=== PATIENT | male | born 1965 | race Caucasian/White ===

== ENCOUNTER 2017-10-18 07:12 | Emergency (ER) | payer BC ==
[2017-10-18 07:22] VITALS: BP 127/74
--- NOTE | 2017-10-18 08:09 | Emergency Department Report ---
Eye Injury/Foreign Body - HPI Duration: 1 Day Eye Location: Left (eyelid) Severity: None (dull pain) Tetanus Status: Up to Date Eye Symptoms: Eye Pain: Yes (dull pain to left eyelid with redness and swelling) , Blurred Vision: No, Eye Redness: Yes (eyelid redness left upper), Grinding/ Hammering Metal: No, Used Eye Protection: No, Contact Lens Use: No, Recalls Injury: Yes, Photophobia: No Other History: Patient reports that he has redness and swelling to left upper eyelid without any injury. Denies any contacts or foreign body sensation in his eye. Denies any injury to his left eye. Denies any visual difficulties. Denies any fever or chills. Denies any drainage from eye. Tetanus vaccine is up-to-date. Pain is localized to his upper and lower eyelid at 2 out of 10. No medication taken for pain. Pain is worse with blinking. ED Review of Systems ROS: Stated complaint: LEFT EYE SWELLING Other details as noted in HPI Comment: All other systems reviewed and negative Constitutional: no symptoms reported Eyes: eye pain, other (eyelid redness and swelling) ENT: denies: ear pain, throat pain, hearing loss, epistaxis, congestion Respiratory: no symptoms reported Cardiovascular: denies: chest pain, palpitations, dyspnea on exertion, edema, syncope, paroxysmal nocturnal dyspnea Gastrointestinal: denies: abdominal pain, nausea, vomiting Musculoskeletal: denies: back pain, joint swelling, arthralgia, myalgia Skin: denies: rash Neurological: denies: headache, abnormal gait, vertigo ED Past Medical Hx - Past Medical History Previous Medical History?: Yes Hx Diabetes: Yes Hx Kidney Stones: Yes - Surgical History Past Surgical History?: Yes Hx Appendectomy: Yes - Family History Family history: diabetes, hypertension - Social History Smoking Status: Current Every Day Smoker Substance Use Type: None - Medications Home Medications: Home Medications Medication Instructions Recorded Confirmed Last Taken Type Gentamicin 0.3% Ophth Oint 1 applicatio OP Q8H 7 Days #1 tube 10/18/17 Unknown Rx Eye Injury Exam - Exam General: Vital signs noted. No distress. Alert and acting appropriately. This is a 52-year-old male well-nourished well-developed in no acute distress. - Visual Acuity Right Vision Acuity Degree: 20/30 Eye Exam: Both EOMI, Neither Abnormal Pupil, Neither Eye Foreign Body, Neither Lid Foreign Body, Neither Mucous Discharge, Neither Purulent Discharge, Neither Corneal Edema, Neither Photophobia Left Vision Acuity Degree: 20/25 Eye Exam: Both EOMI, Neither Injection, Neither Chemosis, Neither Abnormal Pupil , Neither Eye Foreign Body (left eyelid redness with swelling and period), Neither Lid Foreign Body (no induration), Neither Mucous Discharge, Neither Purulent Discharge, Neither Corneal Edema, Neither Photophobia Bilateral Eye Exam: Both Injection, Both EOMI, Neither Chemosis, Neither Abnormal Pupil, Neither Eye Foreign Body, Neither Lid Foreign Body, Neither Mucous Discharge, Neither Purulent Discharge, Neither Corneal Edema, Neither Photophobia Exam: Head: Normocephalic, atraumatic, no abrasion, no bruising and no contusion. Eyes: Biateral pupils equal and reactive to light, bilateral EOM intact.. Bilateral conjunctival and sclera without injection, normal accommodation. Left eyelid redness and swelling mild tenderness to palpate. Visual acuity is 20/30 right eye, 2024 left eye and 20/25 all around. Mouth: Moist, no pharyngeal exudate or erythema. No peritonsillar abscesses. Uvula is midline and oral airways patent. Ears: Bilateral TMs p[place]. Bilateral EAC without any redness swelling or drainage. No mastoid bone tenderness. Nose: Bilateral nasal mucosa normal without any drainag. Maxillary and frontal sinuses non-tender to palpate. Neck: Supple, No Cervical adenopathy, full range of motion and no C-spine tenderness. No swelling or tracheal deviation normal reflexes. Cardiovascular: S1, S2. Regular rate and rhythm. No murmur. Capillary refill is less then 3 seconds. Skin: Clean dry and intact, no rash no lesions. Lungs: Clear to auscultate bilaterally. No rhonchi, wheezes or rales. No. Psych: Normal mood and behavior ED Course Vital Signs 10/18/17 07:19 Temperature 97.8 F Pulse Rate 84 Respiratory 16 Rate Blood Pressure 127/74 O2 Sat by Pulse 100 Oximetry - Reevaluation(s) Reevaluation #1: 10/18/17 08:34 Patient had an uneventful stay ED Medical Decision Making - Medical Decision Making ED course: A stat with complaints of left eyelid swelling and found to have Hordeleum to left upper eyelid. I discussed diagnosis and treatment plan with patient. His visual acuity is stable. See notes for detail. Pain is localized to the left upper lid with no visual problems. I discussed treatment plan and follow-up the patient. He voiced understanding patient does have access to primary care and to sterilization tech so, I told him to follow-up in 2- 3 days. Condition discharged from ER in stable condition with prescription for gentamicin ophthalmic antibiotic ointment. Critical care attestation.: If time is entered above; I have spent that time in minutes in the direct care of this critically ill patient, excluding procedure time. ED Disposition Clinical Impression: Hordeolum externum left upper eyelid Disposition: DC- TO HOME OR SELFCARE Is pt being admited?: No Does the pt Need Aspirin: No Condition: Stable Instructions: Glenn (ED) Additional Instructions: Please apply warm compresses to the left upper eyelid followed by antibiotic ointment 4 times a day for 7 days Keep affected area clean and dry Follow-up with your primary care physician and sterilization tech as instructed Prescriptions: Gentamicin 0.3% Ophth Oint 1 applicatio OP Q8H 7 Days #1 tube Referrals: [facility] [Outside] - 2-3 Days REAGAN ELIZALDE MD [Staff Physician] - 2-3 Days Forms: Work/School Release Form(ED)
== END 2017-10-18 08:51 | disposition home or self-care (01) ==
LOC: ED 07:12
DX: H00.014 Hordeolum externum left upper eyelid (principal); E11.9 Type 2 diabetes mellitus without complications; F17.200 Nicotine dependence, unspecified, uncomplicated
CPT/HCPCS: 99282

== ENCOUNTER 2017-11-01 17:15 | Inpatient (IN) | payer BC ==
[2017-11-01 18:13] LABS: Basophils % (Auto) 0.2 % (0.0-1.8); Eosinophils # (Auto) 0.3 K/mm3 (0.0-0.4); Eosinophils % (Auto) 5.8 % (0.0-4.3); Hemoglobin 14.7 gm/dl (11.8-15.2); Lymphocytes # (Auto) 0.8 K/mm3 (1.2-5.4); Lymphocytes % (Auto) 14.6 % (13.4-35.0); Mean Corpuscular HGB Conc 34 % (32-34); Mean Corpuscular Hemoglobin 29 pg (28-32); Mean Corpuscular Volume 84 fl (84-94); Monocytes # (Auto) 0.7 K/mm3 (0.0-0.8); Monocytes % (Auto) 11.5 % (0.0-7.3); Platelet Count 232 K/mm3 (140-440); Red Blood Count 5.14 M/mm3 (3.65-5.03); Red Cell Distribution Width 13.3 % (13.2-15.2)
[2017-11-01 18:18] LABS: INR 0.87 (0.87-1.13)
[2017-11-01 18:19] LABS: Partial Thromboplastin Time 26.1 Sec. (24.2-36.6)
[2017-11-01] MEDS ORDERED: NACL 0.9% 1000 ML 1,000 ML IV ONE (18:19)
--- NOTE | 2017-11-01 18:20 | Emergency Department Report ---
ED Chest Pain HPI - General Chief Complaint: Chest Pain Stated Complaint: CHEST PAIN Source: patient Mode of arrival: Ambulatory Limitations: No Limitations - History of Present Illness Initial Comments: 52-year-old male with a history of obesity and hypothyroidism presents complaining of sternal chest pain that started at 4 PM today. Pain is described as 8/10 pressure that radiates to the left arm. Pain is intermittent but no aggravating or alleviating factors reported. Positive associated shortness of breath without nausea, vomiting, or diaphoresis. Intermittent palpitations were reported. Patient just returned from a plane flight from [place] on 10/15/2017. He complains of chronic intermittent bilateral lower extremity swelling which is no worse than baseline. PaThere is no unilateral calf pain reported. For the past 5 days patient has had a dry cough and a fever hi of 101 for the past 2 days. No fever today but cough persists. Patient did receive a flu shot. Last stress test was approximately one year ago performed by Dr. Saul that was "normal". Patient denies smoking cigarettes or any previous history of PE/DVT. Severity scale (0 -10): 3 - Related Data Previous Rx's Medication Instructions Recorded Last Taken Type Gentamicin 0.3% Ophth Oint 1 applicatio OP Q8H 7 Days #1 tube 10/18/17 Unknown Rx Allergies Allergy/AdvReac Type Severity Reaction Status Date / Time No Known Allergies Allergy Unverified 10/18/17 07:22 Heart Score - HEART Score History: Slightly suspicious EKG: Normal Age: 45-65 Risk factors: 1-2 risk factors Troponin: < normal limit HEART Score: 2 ED Review of Systems ROS: Stated complaint: CHEST PAIN Other details as noted in HPI Comment: All other systems reviewed and negative Other: Constitutional: No fevers chills Eyes: No eye pain visual changes ENT: No ear pain or throat pain Neck: Denies pain Respiratory: Denies cough wheezing Cardiovascular: as per hpi GI: Denies abdominal pain, nausea, vomiting, diarrhea : Denies dysuria Musculoskeletal: Denies back pain Skin: Denies rash, lesions, erythema Neurologic: Denies headache, numbness, weakness Psychiatric: Denies suicidal ideation, hallucinations ED Past Medical Hx - Past Medical History Hx Diabetes: Yes Hx Kidney Stones: Yes Additional medical history: hypothyroidism - Surgical History Hx Appendectomy: Yes Additional Surgical History: hernia repair x2 - Social History Smoking Status: Light Tobacco Smoker Substance Use Type: None - Medications Home Medications: Home Medications Medication Instructions Recorded Confirmed Last Taken Type Gentamicin 0.3% Ophth Oint 1 applicatio OP Q8H 7 Days #1 tube 10/18/17 Unknown Rx ED Physical Exam - General Limitations: No Limitations - Other Other exam information: General: No limitations, patient is alert in no acute distress Head exam: Atraumatic, normocephalic Eyes exam: Normal appearance ENT: Moist mucous membrane, normal oropharynx Neck exam: Normal inspection, full range of motion, no meningismus nontender Respiratory exam: Clear to auscultation bilateral, no wheezes, rales, crackles Cardiovascular: Mild tachycardia regular rhythm, normal heart sounds. Mild lower sternal chest wall tenderness Abdomen: Soft, nondistended, and nontender, with normal bowel sounds, no rebound, or guarding Extremity: Full range of motion normal inspection no deformity, no calf tenderness, no pitting edema, no leg asymmetry Back: Normal Inspection, full range of motion, no tenderness Neurologic: Alert, oriented x3, cranial nerves intact, no motor or sensory deficit Psychiatric: normal affect, normal mood Skin: Warm, dry, intact ED Course Vital Signs 11/01/17 11/01/17 17:23 18:15 Temperature 98.4 F Pulse Rate 106 H 97 H Respiratory 22 16 Rate Blood Pressure 127/76 122/81 O2 Sat by Pulse 96 92 Oximetry - Reevaluation(s) Reevaluation #1: 11/01/17 18:23 Patient declined offer for pain medication at this time MIKE score - Mike Score Age > 65: (0) No Aspirin use within the Past 7 Days: (0) No 3 or more CAD Risk Factors: (0) No 2 or more Angina events in past 24 hrs: (1) Yes Known CAD with more than 50% Stenosis: (0) No Elevated Cardiac Markers: (0) No ST Deviation Greater than 0.5mm: (0) No MIKE Score: 1 ED Medical Decision Making - Lab Data Result diagrams: 11/01/17 17:39 11/01/17 17:39 Lab Results 11/01/17 11/01/17 11/01/17 Range/Units 17:39 17:39 17:39 WBC 5.8 (4.5-11.0) K/mm3 RBC 5.14 H (3.65-5.03) M/mm3 Hgb 14.7 (11.8-15.2) gm/dl Hct 43.0 (35.5-45.6) % MCV 84 (84-94) fl MCH 29 (28-32) pg MCHC 34 (32-34) % RDW 13.3 (13.2-15.2) % Plt Count 232 (140-440) K/mm3 Lymph % (Auto) 14.6 (13.4-35.0) % [place] % (Auto) 11.5 H (0.0-7.3) % Eos % (Auto) 5.8 H (0.0-4.3) % Baso % (Auto) 0.2 (0.0-1.8) % Lymph # 0.8 L (1.2-5.4) K/mm3 [place] # 0.7 (0.0-0.8) K/mm3 Eos # 0.3 (0.0-0.4) K/mm3 Baso # 0.0 (0.0-0.1) K/mm3 Seg Neutrophils % 67.9 (40.0-70.0) % Seg Neutrophils # 3.9 (1.8-7.7) K/mm3 PT 12.2 (12.2-14.9) Sec. INR 0.87 (0.87-1.13) APTT 26.1 (24.2-36.6) Sec. D-Dimer 168.68 (0-234) ng/mlDDU Sodium 137 (137-145) mmol/L Potassium 4.0 (3.6-5.0) mmol/L Chloride 98.2 (98-107) mmol/L Carbon Dioxide 24 (22-30) mmol/L Anion Gap 19 mmol/L BUN 8 L (9-20) mg/dL Creatinine 0.6 L (0.8-1.5) mg/dL Estimated GFR > 60 ml/min BUN/Creatinine Ratio 13 % Glucose 155 H (75-100) mg/dL Calcium 8.5 (8.4-10.2) mg/dL Total Bilirubin 0.30 (0.1-1.2) mg/dL AST 20 (5-40) units/L ALT 22 (7-56) units/L Alkaline Phosphatase 84 (35-129) units/L Total Creatine Kinase 341 H (55-170) units/L CK-MB (CK-2) 1.5 (0.0-4.0) ng/mL CK-MB (CK-2) Rel Index 0.4 (0-4) Troponin T < 0.010 (0.00-0.029) ng/mL Total Protein 7.1 (6.3-8.2) g/dL Albumin 3.8 L (3.9-5) g/dL Albumin/Globulin Ratio 1.2 % TSH (0.270-4.200) mlU/mL Free T4 (0.76-1.46) ng/dL 11/01/17 Range/Units 17:44 WBC (4.5-11.0) K/mm3 RBC (3.65-5.03) M/mm3 Hgb (11.8-15.2) gm/dl Hct (35.5-45.6) % MCV (84-94) fl MCH (28-32) pg MCHC (32-34) % RDW (13.2-15.2) % Plt Count (140-440) K/mm3 Lymph % (Auto) (13.4-35.0) % [place] % (Auto) (0.0-7.3) % Eos % (Auto) (0.0-4.3) % Baso % (Auto) (0.0-1.8) % Lymph # (1.2-5.4) K/mm3 [place] # (0.0-0.8) K/mm3 Eos # (0.0-0.4) K/mm3 Baso # (0.0-0.1) K/mm3 Seg Neutrophils % (40.0-70.0) % Seg Neutrophils # (1.8-7.7) K/mm3 PT (12.2-14.9) Sec. INR (0.87-1.13) APTT (24.2-36.6) Sec. D-Dimer (0-234) ng/mlDDU Sodium (137-145) mmol/L Potassium (3.6-5.0) mmol/L Chloride (98-107) mmol/L Carbon Dioxide (22-30) mmol/L Anion Gap mmol/L BUN (9-20) mg/dL Creatinine (0.8-1.5) mg/dL Estimated GFR ml/min BUN/Creatinine Ratio % Glucose (75-100) mg/dL Calcium (8.4-10.2) mg/dL Total Bilirubin (0.1-1.2) mg/dL AST (5-40) units/L ALT (7-56) units/L Alkaline Phosphatase (35-129) units/L Total Creatine Kinase (55-170) units/L CK-MB (CK-2) (0.0-4.0) ng/mL CK-MB (CK-2) Rel Index (0-4) Troponin T (0.00-0.029) ng/mL Total Protein (6.3-8.2) g/dL Albumin (3.9-5) g/dL Albumin/Globulin Ratio % TSH 0.594 (0.270-4.200) mlU/mL Free T4 1.11 (0.76-1.46) ng/dL - EKG Data -: EKG Interpreted by Mo EKG shows normal: sinus rhythm, axis (20), QRS complexes (86), ST-T waves (mo semi) Rate: tachycardia (110) - EKG Data When compared to previous EKG there are: previous EKG unavailable - Radiology Data Radiology results: report reviewed Read by radiologist Chest x-ray: Linear atelectasis or scarring in the lingula. No other acute process - Medical Decision Making Chest pain Mild sternal tenderness but patient states that the pain he is experiencing is a pressure different from the reproducible chest wall pain. EKG and labs unremarkable. D-dimer negative. Repeat cardiac enzymes pending Patient has several cardiac risk factors but reports a negative stress tests within the past year done at another facility URI Complains of a cough and cold symptoms with fever Fever improved today No significant leukocytosis or infiltrate identified Patient receive a flu shot Plan admit to the hospital due to shortness of breath and chest pain complaints for further workup and evaluation. - Differential Diagnosis PE, ME, unstable anginia,costochondritis, pneumonia, atypical chest, viral Critical Care Time: No Critical care attestation.: If time is entered above; I have spent that time in minutes in the direct care of this critically ill patient, excluding procedure time. ED Disposition Clinical Impression: Chest pain, Obesity, Viral syndrome Disposition: OP ADMIT IP TO THIS HOSP Is pt being admited?: Yes Condition: Stable Time of Disposition: 19:18 (Dr Moseley/hosp)
[2017-11-01 18:39] LABS: Alanine Aminotransferase 22 units/L (7-56); Albumin 3.8 g/dL (3.9-5); BUN/Creatinine Ratio 13; Blood Urea Nitrogen 8 mg/dL (9-20); Calcium 8.5 mg/dL (8.4-10.2); Creatine Kinase MB 1.5 ng/mL (0.0-4.0); Hemolysis Index 10
[2017-11-01 18:45] LABS: Free T4 (Free Thyroxine) 1.11 ng/dL (0.76-1.46)
--- NOTE | 2017-11-01 18:49 | XRay Report ---
FINAL REPORT EXAM: XR CHEST ROUTINE 2V HISTORY: Chest Pain TECHNIQUE: PA and lateral views of the chest PRIORS: None. FINDINGS: Lines, tubes, and devices: N/A Lungs and pleura: Trachea is normal in position. Linear atelectasis or scarring in the lingula is seen. Lungs are clear of infiltrate, pleural effusion, vascular congestion, or pneumothorax. Cardiomediastinal silhouette: Cardiac and mediastinal silhouettes are unremarkable. Other: Bony structures are intact. IMPRESSION: Linear atelectasis or scarring in the lingula is seen. No other acute cardiopulmonary process seen.
[2017-11-01] MEDS ORDERED: MOTRIN PO ONE (22:29)
--- NOTE | 2017-11-01 23:38 | History and Physical Report ---
History of Present Illness Date of examination: 11/01/17 Date of admission: 11/01/17 19:31 Chief complaint: CC CHest pain since 4pm -intermittent in nature History of present illness: History of Present Illness 52-year-old male with a history of obesity and hypothyroidism presents complaining of Retro sternal chest pain that started at 4 PM today. Pain is described as 8/10 pressure that radiates to the left arm. Pain is intermittent but no aggravating or alleviating factors reported. Positive associated shortness of breath without nausea, vomiting, or diaphoresis. Intermittent palpitations were reported. Patient just returned from a plane flight from [place] on 10/15/2017. He complains of chronic intermittent bilateral lower extremity swelling which is no worse than baseline. There is no unilateral calf pain reported. For the past 5 days patient has had a dry cough and a fever high temp of 101 for the past 2 days. No fever today but cough persists. Patient did receive a flu shot. Last stress test was approximately one year ago performed by Dr. Saul that was "normal". Patient denies smoking cigarettes or any previous history of PE/DVT.Patient apparently lost 500 lbs from 360lbsto 310lbs over last one year. Past Medical History Hx Diabetes: Yes Hx Kidney Stones: Yes Additional medical history: hypothyroidism - Surgical History Hx Appendectomy: Yes Additional Surgical History: hernia repair x2 - Social History Smoking Status: Light Tobacco Smoker Substance Use Type: None Fam Hx Htn - Medications Home Medications: Home Medications Medication Instructions Recorded Confirmed Last Taken Type Gentamicin 0.3% Ophth Oint 1 applicatio OP Q8H 7 Days #1 tube 10/18/17 Unknown Rx Medications and Allergies Allergies Allergy/AdvReac Type Severity Reaction Status Date / Time No Known Allergies Allergy Verified 11/02/17 00:24 Home Medications Medication Instructions Recorded Confirmed Last Taken Type Gentamicin 0.3% Ophth Oint 1 applicatio OP Q8H 7 Days #1 tube 10/18/17 Unknown Rx Review of Systems All systems: negative Constitutional: weight loss (Lost 50 lbs over last one year), fever, no weight gain, no chills, no sweats, no night sweats Ears, nose, mouth and throat: no sore throat, no swelling in mouth, no swelling in throat, no odynophagia Cardiovascular: dyspnea on exertion, no chest pain, no orthopnea, no palpitations, no rapid/irregular heart beat, no edema, no syncope Respiratory: cough, congestion Gastrointestinal: no abdominal pain, no nausea, no vomiting, no diarrhea, no constipation, no change in bowel habits, no hematemesis, no coffee ground emesis Genitourinary Male: no dysuria, no hematuria, no flank pain, no discharge, no urinary frequency Rectal: no pain Musculoskeletal: no neck stiffness, no neck pain, no shooting arm pain, no arm numbness/tingling Integumentary: no rash, no pruritis, no redness, no sores Neurological: no head injury, no seizures, no syncope Psychiatric: no anxiety, no memory loss, no sleep disturbances, no insomnia Endocrine: no cold intolerance, no heat intolerance, no polyphagia, no excessive thirst, no polydipsia Hematologic/Lymphatic: no easy bruising, no easy bleeding Allergic/Immunologic: no urticaria, no allergic rhinitis, no wheezing Exam - Constitutional Vitals: Temp Pulse Resp BP Pulse Ox 98.5 F 94 H 31 H 132/75 94 11/01/17 19:29 11/01/17 23:27 11/01/17 21:00 11/01/17 22:31 11/01/17 22:31 General appearance: Present: no acute distress, well-nourished - EENT Eyes: Present: PERRL ENT: hearing intact, clear oral mucosa - Neck Neck: Present: supple, normal ROM - Respiratory Respiratory effort: normal Respiratory: bilateral: CTA - Cardiovascular Heart rate: 80 Rhythm: regular Heart Sounds: Present: S1 & S2. Absent: rub, click - Extremities Extremities: no ischemia, pulses intact, pulses symmetrical, No edema Peripheral Pulses: within normal limits - Abdominal General gastrointestinal: Present: soft, non-tender, non-distended, normal bowel sounds Male genitourinary: Present: normal - Rectal Rectal Exam: deferred - Integumentary Integumentary: Present: clear, warm, dry - Musculoskeletal Musculoskeletal: gait normal, strength equal bilaterally - Psychiatric Psychiatric: appropriate mood/affect, intact judgment & insight - Neurologic Neurologic: CNII-XII intact, moves all extremities - Allied Health Allied health notes reviewed: nursing, case management Results - Labs CBC & Chem 7: 11/01/17 17:39 11/01/17 17:39 Labs: Laboratory Last Values WBC 5.8 K/mm3 (4.5-11.0) 11/01/17 17:39 RBC 5.14 M/mm3 (3.65-5.03) H 11/01/17 17:39 Hgb 14.7 gm/dl (11.8-15.2) 11/01/17 17:39 Hct 43.0 % (35.5-45.6) 11/01/17 17:39 MCV 84 fl (84-94) 11/01/17 17:39 MCH 29 pg (28-32) 11/01/17 17:39 MCHC 34 % (32-34) 11/01/17 17:39 RDW 13.3 % (13.2-15.2) 11/01/17 17:39 Plt Count 232 K/mm3 (140-440) 11/01/17 17:39 Lymph % (Auto) 14.6 % (13.4-35.0) 11/01/17 17:39 [place] % (Auto) 11.5 % (0.0-7.3) H 11/01/17 17:39 Eos % (Auto) 5.8 % (0.0-4.3) H 11/01/17 17:39 Baso % (Auto) 0.2 % (0.0-1.8) 11/01/17 17:39 Lymph # 0.8 K/mm3 (1.2-5.4) L 11/01/17 17:39 [place] # 0.7 K/mm3 (0.0-0.8) 11/01/17 17:39 Eos # 0.3 K/mm3 (0.0-0.4) 11/01/17 17:39 Baso # 0.0 K/mm3 (0.0-0.1) 11/01/17 17:39 Seg Neutrophils % 67.9 % (40.0-70.0) 11/01/17 17:39 Seg Neutrophils # 3.9 K/mm3 (1.8-7.7) 11/01/17 17:39 PT 12.2 Sec. (12.2-14.9) 11/01/17 17:39 INR 0.87 (0.87-1.13) 11/01/17 17:39 APTT 26.1 Sec. (24.2-36.6) 11/01/17 17:39 D-Dimer 168.68 ng/mlDDU (0-234) 11/01/17 17:39 Sodium 137 mmol/L (137-145) 11/01/17 17:39 Potassium 4.0 mmol/L (3.6-5.0) 11/01/17 17:39 Chloride 98.2 mmol/L (98-107) 11/01/17 17:39 Carbon Dioxide 24 mmol/L (22-30) 11/01/17 17:39 Anion Gap 19 mmol/L 11/01/17 17:39 BUN 8 mg/dL (9-20) L 11/01/17 17:39 Creatinine 0.6 mg/dL (0.8-1.5) L 11/01/17 17:39 Estimated GFR > 60 ml/min 11/01/17 17:39 BUN/Creatinine Ratio 13 % 11/01/17 17:39 Glucose 155 mg/dL (75-100) H 11/01/17 17:39 Calcium 8.5 mg/dL (8.4-10.2) 11/01/17 17:39 Total Bilirubin 0.30 mg/dL (0.1-1.2) 11/01/17 17:39 AST 20 units/L (5-40) 11/01/17 17:39 ALT 22 units/L (7-56) 11/01/17 17:39 Alkaline Phosphatase 84 units/L (35-129) 11/01/17 17:39 Total Creatine Kinase 341 units/L (55-170) H 11/01/17 17:39 CK-MB (CK-2) 1.5 ng/mL (0.0-4.0) 11/01/17 17:39 CK-MB (CK-2) Rel Index 0.4 (0-4) 11/01/17 17:39 Troponin T < 0.010 ng/mL (0.00-0.029) 11/01/17 20:23 Total Protein 7.1 g/dL (6.3-8.2) 11/01/17 17:39 Albumin 3.8 g/dL (3.9-5) L 11/01/17 17:39 Albumin/Globulin Ratio 1.2 % 11/01/17 17:39 TSH 0.594 mlU/mL (0.270-4.200) 11/01/17 17:44 Free T4 1.11 ng/dL (0.76-1.46) 11/01/17 17:44 Short CBC 11/01/17 Range/Units 17:39 WBC 5.8 (4.5-11.0) K/mm3 Hgb 14.7 (11.8-15.2) gm/dl Hct 43.0 (35.5-45.6) % Plt Count 232 (140-440) K/mm3 BMP 11/01/17 17:39 Sodium 137 Potassium 4.0 Chloride 98.2 Carbon Dioxide 24 BUN 8 L Creatinine 0.6 L Glucose 155 H Calcium 8.5 Cardiac Enzymes 11/01/17 11/01/17 11/01/17 Range/Units 17:39 20:23 23:01 Total Creatine Kinase 341 H (55-170) units/L CK-MB (CK-2) 1.5 (0.0-4.0) ng/mL Troponin T < 0.010 < 0.010 < 0.010 (0.00-0.029) ng/mL 11/02/17 Range/Units 00:29 Total Creatine Kinase (55-170) units/L CK-MB (CK-2) (0.0-4.0) ng/mL Troponin T < 0.010 (0.00-0.029) ng/mL Liver Function 11/01/17 Range/Units 17:39 Total Bilirubin 0.30 (0.1-1.2) mg/dL AST 20 (5-40) units/L ALT 22 (7-56) units/L Alkaline Phosphatase 84 (35-129) units/L Albumin 3.8 L (3.9-5) g/dL - Imaging and Cardiology EKG: report reviewed ( sinus rhythm, axis (20), QRS complexes (86), ST-T waves ( mo semi)Sinus tach 110/min) Chest x-ray: report reviewed (NAF) CT Scan - head: pending Assessment and Plan Advance Directives: Yes (Full code) VTE prophylaxis?: Chemical Plan of care discussed with patient/family: Yes - Patient Problems (1) Chest pain Current Visit: Yes Status: Acute Qualifiers: Chest pain type: unspecified Qualified Code(s): R07.9 - Chest pain, unspecified Plan to address problem: Chest pain w/u Serial CE's and Lexiscan in AM Costochondritis unlikely.No reproducible chest pain. Gerd a poosibility (2) Obesity Current Visit: Yes Status: Acute Qualifiers: Obesity classification: adult class 3 (BMI >= 40) Body mass index: BMI 50.0 -59.9 Plan to address problem: Patient counselled.Has lost 50 lbs over last 1 year.Made a life style change (3) Viral syndrome Current Visit: Yes Status: Acute Plan to address problem: Symptomatic treatment PO Zithromax for 3 days (4) T2DM (type 2 diabetes mellitus) Current Visit: Yes Status: Chronic Qualifiers: Diabetes mellitus complication status: without complication Plan to address problem: A1c =7.0 Not on any medicine for T2dm Initiatd on Metformin xr 1000 po qd.F/u with pcp regarding control of Diabetes Diabetes education (5) Hypothyroidism (acquired) Current Visit: Yes Status: Chronic Plan to address problem: Patient 's TSH is normal.F/u with pcp.Not on synthyroid. (6) GERD (gastroesophageal reflux disease) Current Visit: Yes Status: Chronic Qualifiers: Esophagitis presence: without esophagitis Qualified Code(s): K21.9 - Gastro -esophageal reflux disease without esophagitis Plan to address problem: Initiated on PO Protonix.To d/c on Protonix (7) DVT prophylaxis Current Visit: Yes Status: Acute Plan to address problem: On Lovenox
[2017-11-02] MEDS ORDERED: MORPHINE IV PRN (00:13)
[2017-11-02] MEDS ORDERED: TYLENOL PO PRN (00:13)
[2017-11-02] MEDS ORDERED: PERCOCET 5/325 PO PRN (00:13)
[2017-11-02] MEDS ORDERED: ZOFRAN IV PRN (00:13)
[2017-11-02] MEDS ORDERED: DULCOLAX PR PRN (00:13)
[2017-11-02] MEDS ORDERED: MILK OF MAGNESIA PO PRN (00:13)
[2017-11-02] MEDS: NOVOLOG SUB-Q SCH ×4 (07:30→22:04)
[2017-11-02] MEDS ORDERED: LEXISCAN IV ONE ×2 (08:11→08:23)
[2017-11-02] MEDS: GLUCOPHAGE XR PO SCH (09:00)
[2017-11-02] MEDS ORDERED: PEPCID PO SCH (10:00)
[2017-11-02] MEDS ORDERED: ATIVAN IV NR (11:30)
--- NOTE | 2017-11-02 12:20 | Progress Note ---
Assessment and Plan - Patient Problems (1) Chest pain Current Visit: Yes Status: Acute Qualifiers: Chest pain type: unspecified Qualified Code(s): R07.9 - Chest pain, unspecified Plan to address problem: Patient with atypical chest pain currently chest pain-free at this particular time. Patient to have stress test today we'll follow results. At the top my differential is Cruz syndrome at this particular time. Troponin negative chest x -ray negative EKG unremarkable. Stress test unremarkable plan discharge. (2) Hypothyroidism (acquired) Current Visit: Yes Status: Acute Plan to address problem: Suboptimal resume Synthroid. (3) Obesity Current Visit: Yes Status: Acute Qualifiers: Obesity classification: adult class 3 (BMI >= 40) Body mass index: BMI 50.0 -59.9 Plan to address problem: Can also diet education also discussed with options at mealtime. (4) Viral syndrome Current Visit: Yes Status: Acute (5) T2DM (type 2 diabetes mellitus) Current Visit: Yes Status: Chronic Qualifiers: Diabetes mellitus complication status: without complication Plan to address problem: Patient started on metformin just today. I'll observe effectiveness. A1c was 7.0 History Interval history: Patient down for stress test this afternoon. at bedside. No new concerns. Hospital course complicated this afternoon by anxiety at procedure. We'll give Ativan to help calm patient down prior to procedure. We didn't perform stress test. Hospitalist Physical - Constitutional Vitals: Temp Pulse Resp BP Pulse Ox 97.5 F L 102 H 19 112/69 98 11/02/17 08:04 11/02/17 10:42 11/02/17 09:00 11/02/17 10:42 11/02/17 09:00 General appearance: Present: no acute distress, well-nourished - EENT Eyes: Present: PERRL, EOM intact ENT: hearing intact, clear oral mucosa, dentition normal - Neck Neck: Present: supple, normal ROM - Respiratory Respiratory: bilateral: CTA - Extremities Extremities: no ischemia, pulses intact, pulses symmetrical, No edema, normal temperature Peripheral Pulses: within normal limits - Abdominal General gastrointestinal: soft, non-tender, non-distended - Integumentary Integumentary: Present: clear, warm, dry - Psychiatric Psychiatric: appropriate mood/affect - Neurologic Neurologic: CNII-XII intact Results - Labs CBC & Chem 7: 11/01/17 17:39 02 17:39 Labs: Laboratory Last Values WBC 5.8 K/mm3 (4.5-11.0) 11/01/17 17:39 RBC 5.14 M/mm3 (3.65-5.03) H 11/01/17 17:39 Hgb 14.7 gm/dl (11.8-15.2) 11/01/17 17:39 Hct 43.0 % (35.5-45.6) 11/01/17 17:39 MCV 84 fl (84-94) 11/01/17 17:39 MCH 29 pg (28-32) 11/01/17 17:39 MCHC 34 % (32-34) 11/01/17 17:39 RDW 13.3 % (13.2-15.2) 11/01/17 17:39 Plt Count 232 K/mm3 (140-440) 11/01/17 17:39 Lymph % (Auto) 14.6 % (13.4-35.0) 11/01/17 17:39 [place] % (Auto) 11.5 % (0.0-7.3) H 11/01/17 17:39 Eos % (Auto) 5.8 % (0.0-4.3) H 11/01/17 17:39 Baso % (Auto) 0.2 % (0.0-1.8) 11/01/17 17:39 Lymph # 0.8 K/mm3 (1.2-5.4) L 11/01/17 17:39 [place] # 0.7 K/mm3 (0.0-0.8) 11/01/17 17:39 Eos # 0.3 K/mm3 (0.0-0.4) 11/01/17 17:39 Baso # 0.0 K/mm3 (0.0-0.1) 11/01/17 17:39 Seg Neutrophils % 67.9 % (40.0-70.0) 11/01/17 17:39 Seg Neutrophils # 3.9 K/mm3 (1.8-7.7) 11/01/17 17:39 PT 12.2 Sec. (12.2-14.9) 11/01/17 17:39 INR 0.87 (0.87-1.13) 11/01/17 17:39 APTT 26.1 Sec. (24.2-36.6) 11/01/17 17:39 D-Dimer 168.68 ng/mlDDU (0-234) 11/01/17 17:39 Sodium 137 mmol/L (137-145) 11/01/17 17:39 Potassium 4.0 mmol/L (3.6-5.0) 11/01/17 17:39 Chloride 98.2 mmol/L (98-107) 11/01/17 17:39 Carbon Dioxide 24 mmol/L (22-30) 11/01/17 17:39 Anion Gap 19 mmol/L 11/01/17 17:39 BUN 8 mg/dL (9-20) L 11/01/17 17:39 Creatinine 0.6 mg/dL (0.8-1.5) L 11/01/17 17:39 Estimated GFR > 60 ml/min 11/01/17 17:39 BUN/Creatinine Ratio 13 % 11/01/17 17:39 Glucose 155 mg/dL (75-100) H 11/01/17 17:39 POC Glucose 134 (70-105) H 11/02/17 08:11 Hemoglobin A1c 7.0 % (4-6) H 11/02/17 00:29 Calcium 8.5 mg/dL (8.4-10.2) 11/01/17 17:39 Total Bilirubin 0.30 mg/dL (0.1-1.2) 11/01/17 17:39 AST 20 units/L (5-40) 11/01/17 17:39 ALT 22 units/L (7-56) 11/01/17 17:39 Alkaline Phosphatase 84 units/L (35-129) 11/01/17 17:39 Total Creatine Kinase 341 units/L (55-170) H 11/01/17 17:39 CK-MB (CK-2) 1.5 ng/mL (0.0-4.0) 11/01/17 17:39 CK-MB (CK-2) Rel Index 0.4 (0-4) 11/01/17 17:39 Troponin T < 0.010 ng/mL (0.00-0.029) 11/02/17 07:46 Total Protein 7.1 g/dL (6.3-8.2) 11/01/17 17:39 Albumin 3.8 g/dL (3.9-5) L 11/01/17 17:39 Albumin/Globulin Ratio 1.2 % 11/01/17 17:39 TSH 0.980 mlU/mL (0.270-4.200) 11/02/17 07:46 Free T4 1.11 ng/dL (0.76-1.46) 11/01/17 17:44
[2017-11-02] MEDS: PROTONIX PO SCH (13:18)
[2017-11-02] MEDS: ZITHROMAX PO SCH (13:18)
--- NOTE | 2017-11-02 13:27 | Consultation ---
History of Present Illness Consult date: 11/02/17 Consult reason: chest pain History of present illness: 52-year-old man with a history of morbid obesity, who presents to the hospital with chest pain. He describes nonexertional chest pain which was associated with upper respiratory tract symptoms and a persistent fever at home over the past several days. There is no history of coronary artery disease. A dobutamine echocardiogram stress test about a year ago was negative. On this presentation, ECG was sinus rhythm with no ischemic changes. Cardiac enzymes were unremarkable. He underwent a Persantine thallium stress test ordered by the medical service. The thallium stress test shows a small fixed basal inferior defect of mild to moderate intensity, consistent with diaphragmatic attenuation artifact. No significant reversible ischemia is demonstrated on this study. Past History Past Medical History: other (obesity) Medications and Allergies Allergies Allergy/AdvReac Type Severity Reaction Status Date / Time No Known Allergies Allergy Verified 11/02/17 00:24 Home Medications Medication Instructions Recorded Confirmed Last Taken Type Gentamicin 0.3% Ophth Oint 1 applicatio OP Q8H 7 Days #1 tube 10/18/17 Unknown Rx Active Meds: Active Medications Acetaminophen (Tylenol) 650 mg PO Q4H PRN PRN Reason: Pain MILD(1-3)/Fever >100.5/MOORE Azithromycin (Zithromax) 500 mg PO QDAY [facility] Last Admin: 11/02/17 13:18 Dose: 500 mg Bisacodyl (Dulcolax) 10 mg DC QDAY PRN PRN Reason: Constipation unrelieved by MOM Insulin Aspart (Novolog) 0 units SUB-Q ACHS [facility] PRN Reason: Protocol Last Admin: 11/02/17 13:15 Dose: Not Given Magnesium Hydroxide (Milk Of Magnesia) 30 ml PO Q4H PRN PRN Reason: Constipation Metformin HCl (Glucophage Xr) 1,000 mg PO QDDIAB [facility] Last Admin: 11/02/17 09:00 Dose: Not Given Morphine Sulfate (Morphine) 4 mg IV Q4H PRN PRN Reason: Pain , Severe (7-10) Ondansetron HCl (Zofran) 4 mg IV Q8H PRN PRN Reason: N/V unrelieved by Reglan Oxycodone/Acetaminophen (Percocet 5/325) 1 tab PO Q6H PRN PRN Reason: Pain, Moderate (4-6) Pantoprazole Sodium (Protonix) 40 mg PO QDAY [facility] Last Admin: 11/02/17 13:18 Dose: 40 mg Review of Systems Constitutional: fever Cardiovascular: chest pain Respiratory: cough Physical Examination Vital Signs Temp Pulse Resp BP Pulse Ox 98.4 F 106 H 22 127/76 96 11/01/17 17:23 11/01/17 17:23 11/01/17 17:23 11/01/17 17:23 11/01/17 17:23 General appearance: no acute distress HEENT: Positive: PERRL Neck: Positive: neck supple Cardiac: Positive: Reg Rate and Rhythm Lungs: Positive: Decreased Breath Sounds Neuro: Positive: Grossly Intact Abdomen: Positive: Soft Male genitourinary: Positive: deferred Skin: Positive: Clear Extremities: Absent: edema Results 11/01/17 17:39 11/01/17 17:39 Cardiac Enzymes 11/01/17 Range/Units 17:39 AST 20 (5-40) units/L CK-MB (CK-2) 1.5 (0.0-4.0) ng/mL Coagulation 11/01/17 Range/Units 17:39 PT 12.2 (12.2-14.9) Sec. INR 0.87 (0.87-1.13) APTT 26.1 (24.2-36.6) Sec. CBC 11/01/17 Range/Units 17:39 WBC 5.8 (4.5-11.0) K/mm3 RBC 5.14 H (3.65-5.03) M/mm3 Hgb 14.7 (11.8-15.2) gm/dl Hct 43.0 (35.5-45.6) % Plt Count 232 (140-440) K/mm3 Lymph # 0.8 L (1.2-5.4) K/mm3 [place] # 0.7 (0.0-0.8) K/mm3 Eos # 0.3 (0.0-0.4) K/mm3 Baso # 0.0 (0.0-0.1) K/mm3 Comprehensive Metabolic Panel 11/01/17 Range/Units 17:39 Sodium 137 (137-145) mmol/L Potassium 4.0 (3.6-5.0) mmol/L Chloride 98.2 (98-107) mmol/L Carbon Dioxide 24 (22-30) mmol/L BUN 8 L (9-20) mg/dL Creatinine 0.6 L (0.8-1.5) mg/dL Glucose 155 H (75-100) mg/dL Calcium 8.5 (8.4-10.2) mg/dL AST 20 (5-40) units/L ALT 22 (7-56) units/L Alkaline Phosphatase 84 (35-129) units/L Total Protein 7.1 (6.3-8.2) g/dL Albumin 3.8 L (3.9-5) g/dL EKG interpretations - Telemetry EKG Rhythm: Sinus Rhythm Assessment and Plan Patient's chest pain is atypical, was associated with upper respiratory tract infection and fever at home. ECGs and cardiac enzymes are negative, and Persantin thallium stress test is negative. No further cardiac workup is indicated at the current time, recommend that patient follows up with me in the office in 3-5 days. Thank you for the consultation.
--- NOTE | 2017-11-02 23:39 | Treadmill Report ---
Thallium Stress Test Left ventricular chamber size is within normal spread. Perfusion study demonstrates a small fixed basal inferior defect, with minimal to no significant reversibility in the resting study. Gated analysis demonstrates normal left ventricular systolic function, ejection fraction 64%. CONCLUSION: Small fixed basal inferior defect, likely represents diaphragmatic attenuation artifact. Cannot exclude a small prior basal inferior infarct. Clinical correlation is recommended. JOB# [id number] CA/NTS
[2017-11-03] MEDS: PROTONIX PO SCH (09:23)
[2017-11-03] MEDS: ZITHROMAX PO SCH (09:23)
[2017-11-03] MEDS: NOVOLOG SUB-Q SCH ×2 (09:23→13:07)
[2017-11-03] MEDS: GLUCOPHAGE XR PO SCH (09:23)
--- NOTE | 2017-11-03 12:36 | Progress Note ---
Assessment and Plan Upper respiratory infection Atypical chest pain negative this admission No further cardiac workup is indicated. Stable, cardiac youssef, for discharge home. Subjective Date of service: 11/03/17 Interval history: Patient denies chest pain. Still with coughs and congestion. Objective Vital Signs Temp Pulse Pulse Resp BP Pulse Ox 11/03/17 09:46 97.3 F L 76 20 119/80 98 11/03/17 08:37 91 H 19 11/03/17 05:06 98.2 F 71 18 123/78 97 11/03/17 00:49 97.8 F 67 20 133/86 95 11/02/17 20:27 97.8 F 86 18 116/73 95 11/02/17 19:35 86 11/02/17 18:42 17 11/02/17 15:00 76 11/02/17 12:40 97.9 F 90 19 115/81 96 - Physical Examination General: No Apparent Distress HEENT: Positive: PERRL Neck: Positive: neck supple Cardiac: Positive: Reg Rate and Rhythm Lungs: Positive: Decreased Breath Sounds Neuro: Positive: Grossly Intact Abdomen: Positive: Soft Skin: Positive: Clear Extremities: Absent: edema - Imaging and Cardiology EKG: report reviewed ( sinus rhythm, axis (20), QRS complexes (86), ST-T waves ( mo semi)Sinus tach 110/min)
[2017-11-03 13:14] VITALS: BP 133/66
--- NOTE | 2017-11-03 13:26 | Discharge Summary ---
Providers - Providers Date of Admission: 11/01/17 19:31 Date of discharge: 11/03/17 Attending physician: BK JAMES 11/02/17 06:02 Consult to Physician [CONS] Routine Consulting Provider: BEAR LOBO Reason For Exam: Chest pain Notified:: yes Primary care physician: [facility] Hospitalization Condition: Good Pertinent studies: Persantine thallium only small anterior fixed defect. Unremarkable. No reversible. Hospital course: Patient presented originally with cough shortness of breath. Patient has risk factors for hypertension diabetes and morbid obesity. Patient brought in for shortness of breath and atypical chest pain. Cough. Was found to have negative Persantine thallium negative cardiac isoenzymes and no EKG changes. Patient therefore. Theoretically ruled out for cardiac event. Seems mostly secondary to costochondritis from coughing. Patient be treated empirically again antibiotics for bronchitis. Disposition: DC- TO HOME OR SELFCARE - Discharge Diagnoses (1) Chest pain Status: Ruled-out Qualifiers: Chest pain type: unspecified Qualified Code(s): R07.9 - Chest pain, unspecified (2) Hypothyroidism (acquired) Status: Chronic (3) Obesity Status: Chronic Qualifiers: Obesity classification: adult class 3 (BMI >= 40) Body mass index: BMI 50.0 -59.9 Comment: Diet O smoking while patient has bronchitis. (4) Viral syndrome Status: Acute (5) T2DM (type 2 diabetes mellitus) Status: Chronic Qualifiers: Diabetes mellitus complication status: without complication Comment: Fair control of blood sugars will resume metformin. Core Measure Documentation - Palliative Care Palliative Care/ Comfort Measures: Not Applicable - Core Measures Any of the following diagnoses?: none Exam - Constitutional Vitals: Temp Pulse Resp BP Pulse Ox 97.6 F 75 20 133/66 93 11/03/17 13:13 11/03/17 13:13 11/03/17 13:13 11/03/17 13:13 11/03/17 13:13 General appearance: Present: no acute distress, well-nourished - EENT Eyes: Present: PERRL ENT: hearing intact, clear oral mucosa - Neck Neck: Present: supple, normal ROM - Respiratory Respiratory effort: normal Respiratory: bilateral: CTA - Cardiovascular Heart Sounds: Present: S1 & S2. Absent: rub, click - Extremities Extremities: pulses symmetrical, No edema Peripheral Pulses: within normal limits - Abdominal General gastrointestinal: Present: soft, non-tender, non-distended, normal bowel sounds Male genitourinary: Present: normal - Integumentary Integumentary: Present: clear, warm, dry - Musculoskeletal Musculoskeletal: gait normal, strength equal bilaterally - Psychiatric Psychiatric: appropriate mood/affect, intact judgment & insight - Neurologic Neurologic: CNII-XII intact, moves all extremities Plan Activity: avoid flexion Weight Bearing Status: Full Weight Bearing Diet: diabetic Follow up with: VANESSA THOMAS MD [Staff Physician] - 7 Days PRIMARY CARE, [Primary Care Provider] - 7 Days Prescriptions: Azithromycin [Zithromax TAB] 500 mg PO QDAY #7 tablet metFORMIN XR [Glucophage XR] 1,000 mg PO QDDIAB #60 tablet
== END 2017-11-03 14:31 | disposition home or self-care (01) | DRG 206 ==
LOC: ED 17:15 → 4A 19:31
PROVIDERS: ADMIT Internal Medicine; ATTEND Internal Medicine
DX: M94.0 Chondrocostal junction syndrome [Tietze] (principal); Z68.42 Body mass index [BMI] 45.0-49.9, adult; B34.9 Viral infection, unspecified; E03.9 Hypothyroidism, unspecified; E11.9 Type 2 diabetes mellitus without complications; E66.01 Morbid (severe) obesity due to excess calories; J06.9 Acute upper respiratory infection, unspecified; K21.9 Gastro-esophageal reflux disease without esophagitis; Z71.3 Dietary counseling and surveillance
CPT/HCPCS: 36415; 71046; 78452; 80053; 82550; 82553; 82962; 83036; 84439; 84443; 84484; 85025; 85379; 85610; 85730; 93005; 93010; 93017; 99406; A9502; J2060; J2785; J7030

== ENCOUNTER 2018-01-09 06:26 | Day surgery (SDC) | payer BC ==
[2018-01-09 07:38] LABS: Basophils % (Auto) 0.4 % (0.0-1.8); Eosinophils # (Auto) 0.4 K/mm3 (0.0-0.4); Eosinophils % (Auto) 5.8 % (0.0-4.3); Hematocrit 44.2 % (35.5-45.6); Lymphocytes # (Auto) 1.8 K/mm3 (1.2-5.4); Lymphocytes % (Auto) 24.6 % (13.4-35.0); Mean Corpuscular HGB Conc 34 % (32-34); Mean Corpuscular Hemoglobin 28 pg (28-32); Mean Corpuscular Volume 84 fl (84-94); Monocytes # (Auto) 0.5 K/mm3 (0.0-0.8); Monocytes % (Auto) 7.5 % (0.0-7.3); Platelet Count 208 K/mm3 (140-440); Red Blood Count 5.28 M/mm3 (3.65-5.03); Red Cell Distribution Width 13.7 % (13.2-15.2)
[2018-01-09 07:48] LABS: INR 0.9 (0.87-1.13)
[2018-01-09 07:50] LABS: BUN/Creatinine Ratio 30; Blood Urea Nitrogen 15 mg/dL (9-20); Calcium 9.1 mg/dL (8.4-10.2); Hemolysis Index 6
[2018-01-09] MEDS ORDERED: ECOTRIN PO NR (08:00)
[2018-01-09] MEDS ORDERED: NACL 0.9% 500 ML 500 ML IV SCH (08:00)
[2018-01-09] MEDS ORDERED: HEPARIN 10,000 UNITS/10 ML ONE (08:17)
[2018-01-09] MEDS ORDERED: CALAN ONE (08:17)
[2018-01-09] MEDS: VERSED ONE ×2 (08:45→08:48)
[2018-01-09] MEDS: XYLOCAINE 2% INFILTRATI ONE ×2 (08:46→08:48)
[2018-01-09] MEDS: SUBLIMAZE ONE ×2 (08:46→08:48)
[2018-01-09] MEDS: HEPARIN/NS 5000 UNIT/500ML(CATH LAB) 1,000 ML IR ONE ×2 (08:47→09:00)
[2018-01-09] MEDS: NITROGLYCERIN SYRINGE 3 ML ONE ×2 (08:49→09:00)
--- NOTE | 2018-01-09 09:47 | Short Stay Summary ---
Short Stay Documentation Date of service: 01/09/18 - History H&P: obtained from office - Allergies and Medications Current Medications: Allergies No Known Allergies Allergy (Verified 11/02/17 00:24) Home Medications Medication Instructions Recorded Confirmed Last Taken Type Levothyroxine Sodium [Unithroid] 200 mcg PO DAILY 04/11/16 01/09/18 01/08/18 History Pregabalin [Lyrica] 100 mg PO DAILY PRN 04/11/16 01/09/18 1 Month Ago History ~12/09/17 Aspirin [Aspirin EC] 325 mg PO QDAY 01/09/18 01/09/18 01/08/18 History Lisinopril [Prinivil] 5 mg PO QDAY 01/09/18 01/09/18 01/08/18 History metFORMIN XR [Glucophage XR] 2,000 mg PO QDAY 01/09/18 01/09/18 01/08/18 History Active Medications Aspirin (Ecotrin) 325 mg PO ONCE NR Stop: 01/09/18 11:00 Last Admin: 01/09/18 08:16 Dose: 325 mg Sodium Chloride (Nacl 0.9% 500 Ml) 500 mls @ 50 mls/hr IV DIRECT [facility] Stop: 01/09/18 17:59 Last Admin: 01/09/18 08:16 Dose: 50 mls/hr Short Stay Discharge Plan Follow up with: JUAN GUEVARA MD, PHD [Primary Care Provider] - 7 Days
--- NOTE | 2018-01-09 13:07 | Cardiac Catherization Report ---
REFERRING PHYSICIAN: Dr. Messi Carpio. INDICATION FOR PROCEDURE: The patient is a very pleasant 52-year-old gentleman with multiple risk factors, recurrent chest pain, seen by [facility], recommended for heart catheterization, had a new consultation with me. I agreed with this assessment given multiple risk factors and recurrent chest pain, referred for left heart catheterization. Risks, benefits, and potential alternatives explained in length prior to obtaining informed consent. PROCEDURE IN DETAIL: The patient was brought to the dental laboratory technician in a postabsorptive state and prepped and draped in sterile fashion. Joe's test in right hand was normal. A 2 mL of 2% lidocaine was used to anesthetize the right wrist. A standard 6-Irish hydrophilic sheath was used to cannulate the right radial artery via modified Seldinger technique. All exchanges performed to exchange a J-tip guidewire. JL3.5 catheter was used to engage the left main. No dampening or ventricularization. Cineangiography was performed in multiple projections. JR4 catheter was used to cross the aortic valve under fluoroscopic guidance. Left ventriculography was performed in 30 BLOUNT and 30 SRI LANKAN projections via hand injections. Catheter was flushed. Manual pullback was performed with continuous pressure monitoring. Catheter was used to engage the right coronary. No dampening or ventricularization. Cineangiography performed in multiple projections. Next, due to normal coronaries and a significant recurrent chest pain, I decided to proceed with root aortogram with a pigtail catheter and a power injector in the SRI LANKAN projection. Next, catheter removed from the body of wire, sheath removed, and manual pressure used to achieve hemostasis. I directly supervised the administration of moderate sedation with fentanyl and Versed from 8:48 a.m. to 9:20 a.m. DATA: The patient remained in normal sinus rhythm throughout the procedure. Aortic pressure is 130/70, LV pressure is 130, LVP of 20 mmHg. Left ventriculography reveals normal left ventricular systolic performance with estimated ejection fraction of 55-60%. No evidence of aortic stenosis. CORONARY ANATOMY: This is a right dominant system. Right coronary is a moderate sized vessel, courses AV groove, distally bifurcates in the posterior descending and posterolateral branch. No significant obstructive disease noted. Scattered luminal irregularities. Left main is a moderate sized vessel, no significant disease, bifurcates left anterior descending and left circumflex. Left circumflex is a large vessel, courses AV groove, gives off a large OM trunk. No significant disease. LAD is a moderate sized vessel, courses anterior intergroove, wraps around the apex. There is a 25% stenosis proximally, but no obstructive disease identified in the LAD or diagonal or for that matter the rest of the coronary tree. Root aortography reveals normal contour and caliber, normal great vessel anatomy, no evidence of dissection, penetrating aortic ulcer, or aortic insufficiency. CONCLUSIONS: 1. Mild nonobstructive coronary disease in this right dominant system with a maximal narrowing of approximately 25% in the proximal LAD. 2. Normal left ventricular systolic performance, estimated ejection fraction of 55-60%. 3. No evidence of aortic stenosis. 4. Root aortography without evidence of dissection, penetrating aortic ulcer, aortic insufficiency. The patient is clinically stable. Results of the procedure were explained in length to the patient and family. All questions and concerns were addressed. Standard right radial care. Follow up with us in the office. JOB# [id number] MACIEJ/LORI
[2018-01-09 15:40] VITALS: BP 123/72
== END 2018-01-09 11:50 | disposition home or self-care (01) ==
LOC: CATHLABREC 06:26
PROVIDERS: ATTEND Internal Medicine
DX: I25.10 Atherosclerotic heart disease of native coronary artery without angina pectoris (principal); E11.9 Type 2 diabetes mellitus without complications; E66.9 Obesity, unspecified; F41.9 Anxiety disorder, unspecified; F17.200 Nicotine dependence, unspecified, uncomplicated; Z68.42 Body mass index [BMI] 45.0-49.9, adult; Z79.82 Long term (current) use of aspirin
CPT/HCPCS: 36415; 80048; 85025; 85379; 85610; 85730; 93005; 93010; 93458; 93567; 99156; 99157; C1887; C1894; J1644; J2250; J3010; J7040; Q9967

== ENCOUNTER 2018-11-02 14:28 | Outpatient (CLI) | payer BC ==
--- NOTE | 2018-11-02 14:54 | XRay Report ---
XRAY CHEST TWO VIEWS: 11/02/18 14:28:00 CLINICAL: Cough. COMPARISON: 11/01/17 FINDINGS: Normal heart and pulmonary vasculature.Mild lingular scarring unchanged compared to the last exam. The lungs are otherwise normally expanded and clear. No airspace disease or pleural effusion. The bones and soft tissues are normal. IMPRESSION: Negative chest.No pneumonia.
== END 2018-11-02 14:29 | disposition home or self-care (01) ==
LOC: SPVIMAG 14:28
DX: R05 Cough (principal); E66.9 Obesity, unspecified; E11.9 Type 2 diabetes mellitus without complications; E03.9 Hypothyroidism, unspecified; K21.9 Gastro-esophageal reflux disease without esophagitis; Z90.49 Acquired absence of other specified parts of digestive tract; Z87.891 Personal history of nicotine dependence
CPT/HCPCS: 71046

== ENCOUNTER 2019-05-06 08:07 | Outpatient (CLI) | payer BC ==
[2019-05-06 10:43] LABS: Hematocrit 52.1 % (35.5-45.6); Hemoglobin 17.7 gm/dl (11.8-15.2); Mean Corpuscular HGB Conc 34 % (32-34); Mean Corpuscular Volume 85 fl (84-94); Platelet Count 206 K/mm3 (140-440); Red Blood Count 6.13 M/mm3 (3.65-5.03); Red Cell Distribution Width 14.1 % (13.2-15.2)
[2019-05-06 10:59] LABS: Alanine Aminotransferase 28 units/L (7-56); Albumin 4.2 g/dL (3.9-5); BUN/Creatinine Ratio 26; Blood Urea Nitrogen 13 mg/dL (9-20); Calcium 9.4 mg/dL (8.4-10.2); HDL Cholesterol 34 mg/dL (40-59); Hemolysis Index 5; LDL Cholesterol,Direct TNR mg/dL (50-130)
[2019-05-10 13:05] LABS: Vitamin D, 25-OH, D2 <4 ng/mL
== END 2019-05-06 08:08 | disposition home or self-care (01) ==
LOC: LAB 08:07
PROVIDERS: ATTEND Internal Medicine
DX: Z13.21 Encounter for screening for nutritional disorder (principal); E11.40 Type 2 diabetes mellitus with diabetic neuropathy, unspecified; E78.5 Hyperlipidemia, unspecified; E03.9 Hypothyroidism, unspecified; I10 Essential (primary) hypertension
CPT/HCPCS: 36415; 80053; 80061; 82306; 82607; 83036; 84443; 85027